=== PATIENT | male | born 1930 | race Caucasian/White ===

== ENCOUNTER 2016-11-26 20:37 | Emergency (ER) | payer OTHER ==
[~2016-11-26] VITALS: Ht 172.7 cm; Wt 68.0 kg
[2016-11-26 20:53] VITALS: TEMP 36.7; Ht 172.7 cm; Wt 68.0 kg
[2016-11-26] MEDS ORDERED: LEVAQUIN 750MG / 150ML D5W IV STA (21:14)
[2016-11-26] MEDS ORDERED: DEXAMETHASONE SOD INJ 10 MG/ML VIAL IV ONE (21:15)
[2016-11-26] MEDS ORDERED: ALBUT/IPRATROP 3MG/0.5MG NEB 3 ML VIAL INH ONE (21:15)
--- NOTE | 2016-11-26 21:19 | EMERGENCY ROOM VISIT NOTE ---
History Report prepared by Alysa: Facundo Davis Under the Supervision of: Dr. David Carter M.D. First contact with patient: 21:06 Chief Complaint: RESPIRATORY PROBLEMS Stated Complaint: PNEUMONIA History of Present Illness The patient is an 86 year old male who presents to the Emergency Room with complaints of worsening shortness of breath beginning two weeks prior to arrival. He currently rates his discomfort as a 2/10 in severity. The patient associates a cough, fever, and chest discomfort from coughing with today's symptoms. He states he was at Urgent Care, and was diagnosed with right lower lobe pneumonia from a chest x-ray. The patient notes he was referred to the ED for IV antibiotics. He states he had a breathing treatment at the urgent care center. The patient denies passing out. Source of History: patient Onset: two weeks [employer] Position: other (global) Symptom Intensity: 2/10 Quality: other (SOB) Timing: worsening Associated Symptoms: + chest pain (discomfort from coughing), + cough, + fevers Review of Systems See HPI for pertinent positives & negatives. A total of 10 systems reviewed and were otherwise negative. Past Medical & Surgical Medical Problems: (1) Cholelithiasis Family History Patient reports no known family medical history. Social History Smoking Status: Former Smoker Housing Status: lives with family Occupation Status: employed Current/Historical Medications Scheduled Levofloxacin (Levaquin), 750 MG PO QD@08 Prednisone (Prednisone), 50 MG PO DAILY Scheduled PRN [Herbal Remedy], 1 TAB PO BID PRN for COLD SYMPTOMS Allergies Coded Allergies: No Known Allergies (Unverified , 01/04/13) Physical Exam Vital Signs Date Time Temp Pulse Resp B/P Pulse Ox O2 Delivery O2 Flow Rate FiO2 11/26/16 22:35 124 20 124/73 98 Nebulizer 11/26/16 21:48 91 28 92 Room Air 11/26/16 21:11 93 Room Air 11/26/16 20:53 36.7 118 20 103/70 93 Physical Exam GENERAL: Patient is acute on chronically unwell appearing and in mild distress. HEENT: No acute trauma, normocephalic atraumatic, mucous membranes dry, no nasal congestion, no scleral icterus. NECK: No stridor, no adenopathy, no meningismus, trachea is midline. LUNGS: Diffuse wheezing and crackles in all lung espana. Decreased breath sounds in lower right lung field. Junky productive cough. HEART: Regular rate and rhythm. No murmurs, rubs, gallops appreciated. ABDOMEN: Soft, nontender, bowel sounds positive, no masses appreciated, no peritonitis. BACK: No midline tenderness, no CVA tenderness EXTREMITIES: Normal motion all extremities, no cyanosis, no edema. NEUROLOGIC: Alert and oriented, no acute motor or sensory deficits, no focal weakness, cranial nerves grossly intact. SKIN: No rash, no jaundice, no diaphoresis. Medical Decision & Procedures Laboratory Results 11/26/16 21:20 Red Blood Count 4.55, Mean Corpuscular Volume 87.5, Mean Corpuscular Hemoglobin 32.7, Mean Corpuscular Hemoglobin Concent 37.4, Mean Platelet Volume 10.2, Neutrophils (%) (Auto) 84.3, Lymphocytes (%) (Auto) 6.4, Monocytes (%) (Auto) 8.8, Eosinophils (%) (Auto) 0.0, Basophils (%) (Auto) 0.1, Neutrophils # (Auto) 7.02, Lymphocytes # (Auto) 0.53, Monocytes # (Auto) 0.73, Eosinophils # (Auto) 0.00, Basophils # (Auto) 0.01 11/26/16 21:20 Test 11/26/16 21:20 White Blood Count 8.32 K/uL (4.8-10.8) Red Blood Count 4.55 M/uL (4.7-6.1) Hemoglobin 14.9 g/dL (14.0-18.0) Hematocrit 39.8 % (42-52) Mean Corpuscular Volume 87.5 fL (80-100) Mean Corpuscular Hemoglobin 32.7 pg (25-34) Mean Corpuscular Hemoglobin Concent 37.4 g/dl (32-36) Platelet Count 133 K/uL (130-400) Mean Platelet Volume 10.2 fL (7.4-10.4) Neutrophils (%) (Auto) 84.3 % Lymphocytes (%) (Auto) 6.4 % Monocytes (%) (Auto) 8.8 % Eosinophils (%) (Auto) 0.0 % Basophils (%) (Auto) 0.1 % Neutrophils # (Auto) 7.02 K/uL (1.4-6.5) Lymphocytes # (Auto) 0.53 K/uL (1.2-3.4) Monocytes # (Auto) 0.73 K/uL (0.11-0.59) Eosinophils # (Auto) 0.00 K/uL (0-0.5) Basophils # (Auto) 0.01 K/uL (0-0.2) RDW Standard Deviation 45.8 fL (36.4-46.3) RDW Coefficient of Variation 14.3 % (11.5-14.5) Immature Granulocyte % (Auto) 0.4 % Immature Granulocyte # (Auto) 0.03 K/uL (0.00-0.02) Anion Gap 11.0 mmol/L (3-11) Est Creatinine Clear Calc Drug Dose 56.7 ml/min Estimated GFR () 89.3 Estimated GFR (Non- 77.1 BUN/Creatinine Ratio 21.8 (10-20) Calcium Level 8.5 mg/dl (8.5-10.1) Laboratory results as reviewed by me. Medications Administered Medications (Trade) Dose Ordered Sig/Aletha Route Start Time Stop Time Status Last Admin Dose Admin Albuterol/ Ipratropium (Duoneb) 12 ml ONE ONCE INH 11/26/16 21:15 11/26/16 21:16 DC 11/26/16 21:40 12 ML Dexamethasone Sodium Phosphate (Decadron Inj) 10 mg NOW ONCE IV 11/26/16 21:15 11/26/16 21:16 DC 11/26/16 21:15 10 MG Levofloxacin (Levaquin / D5W) 750 mg NOW STAT IV 11/26/16 21:14 11/26/16 21:15 DC 11/26/16 21:14 750 MG ED Course 2107: The patient was evaluated in room B12B. A complete history and physical exam was performed. 2113: Ordered Levofloxacin 750 mg IV. 2114: Ordered Decadron Inj 10 mg IV, Duoneb 12 ml INH. 2221: Reevaluated the patient, and he is feeling better and would like to go home. Discussed results and discharge instructions: He verbalized understanding and agreement. The patient is ready for discharge. Medical Decision Differential: Infectious, Reactive Airway Disease, Pneumonia, Pneumothorax, COPD , CHF, ACS, Pulmonary Embolism, MSK, GI, Dissection, amongst other etiologies entertained. 86 yr old [facility] male arrives for evaluation of cough. Already with CXR reported at right lobe pneumonia. Patient and family very much want to limit testing. Agreeable to basic labs. Hold on repeat CXR as already done and exam consistent with pneumonia along with diffuse COPD like exacerbation. Much improved with neb. Given IV Levaquin per request. Mild tachy, not hypoxic and with normal labs family wishes to go home. Made clear that standard of care would be to bring in to hospital but they wish to go home. Aware they can return at any time if worsening or other concerns. Stable throughout ED stay and discharged with family. Levaquin and Prednisone. Impression Primary Impression: Pneumonia Scribe Attestation The scribe's documentation has been prepared under my direction and personally reviewed by me in its entirety. I confirm that the note above accurately reflects all work, treatment, procedures, and medical decision making performed by me. Departure Information Dispostion Home / Self-Care Prescriptions Prednisone (Prednisone) 50 Mg Tab 50 MG PO DAILY for 5 Days, #5 TAB Prov: David Carter M.D. 11/26/16 Levofloxacin (Levaquin) 750 Mg Tab 750 MG PO QD@08, #6 TAB Prov: David Carter M.D. 11/26/16 Referrals No Doctor, Assigned (PCP) Forms HOME CARE DOCUMENTATION FORM, IMPORTANT VISIT INFORMATION Patient Instructions ED Pneumonia, My [facility] Additional Instructions If you feel you are worsening or wish inpatient treatment we are always here to help. Problem Qualifiers Primary Impression: Pneumonia Pneumonia type: due to unspecified organism Laterality: right Lung location : unspecified part of lung Qualified Codes: J18.9 - Pneumonia, unspecified organism
[2016-11-26 21:48] VITALS: PULSE 91; O2SAT 92
[2016-11-26 21:51] LABS: BASO % 0.1 %; BASO ABS # 0.01 K/uL (0-0.2); COMPLETE YES; HEMATOCRIT 39.8 % (42-52); IG% 0.4 %; LYMPH % 6.4 %; LYMPH ABS # 0.53 K/uL (1.2-3.4); MEAN CELL VOLUME 87.5 fL (80-100); MEAN CORPUSCULAR HEMOGLOBIN 32.7 pg (25-34); MEAN CORPUSCULAR HGB CONC 37.4 g/dl (32-36); MEAN PLATELET VOLUME 10.2 fL (7.4-10.4); MONO % 8.8 %; NEUT % 84.3 %; PLATELET COUNT 133 K/uL (130-400); RED BLOOD COUNT 4.55 M/uL (4.7-6.1); WHITE BLOOD COUNT 8.32 K/uL (4.8-10.8)
[2016-11-26 22:00] LABS: BUN/CREATININE RATIO 21.8 (10-20); CALCIUM 8.5 mg/dl (8.5-10.1); CREATININE 0.9 mg/dl (0.60-1.40); POTASSIUM 3.1 mmol/L (3.5-5.1)
[2016-11-26] MEDS ORDERED: [UNRECOGNIZED DRUG - REMARK] PO (22:05)
[2016-11-26 22:35] VITALS: BP 124/73; PULSE 124; O2SAT 98
[2016-11-26] MEDS ORDERED: PRED50TA PO (22:41)
[2016-11-26] MEDS ORDERED: LEVO1TAB35 PO (22:41)
== END 2016-11-26 22:56 | disposition home or self-care (01) ==
LOC: C.EDB 20:38
DX: J18.9 Pneumonia, unspecified organism (principal); Z87.19 Personal history of other diseases of the digestive system; Z87.891 Personal history of nicotine dependence